=== PATIENT | male | born 1970 | race African-American/Black ===

== ENCOUNTER 2017-03-10 17:47 | Emergency (ER) | payer SELFPAY ==
[~2017-03-10] VITALS: Ht 188 cm; Wt 108.9 kg
[2017-03-10 19:23] LABS: BASOPHIL % 0.4 % (0-2)
[2017-03-10 19:26] LABS: CALCIUM 8.2 mg/dL (8.5-10.1); CARBON DIOXIDE 27.8 mmol/L (21-32); CHLORIDE SERUM 102 mmol/L (98-107); CREATININE SERUM 1.2 mg/dL (0.7-1.3); GFR1 > 60 mL/min; GLUCOSE SERUM 81 mg/dL (74-106); POTASSIUM SERUM 3.7 mmol/L (3.5-5.1); SODIUM SERUM 137 mmol/L (136-145)
[2017-03-10 19:33] LABS: ALKALINE PHOSPHATASE 119 U/L (46-116); ALT/SGPT 12 U/L (16-63); AST/SGOT 23 U/L (15-37); BILIRUBIN TOTAL 0.7 mg/dL (0.20-1.00); TOTAL PROTEIN, SERUM 6.6 g/dL (6.4-8.2)
[2017-03-10 19:34] LABS: ALBUMIN 2.3 g/dL (3.4-5.0)
[2017-03-10 19:39] LABS: PLATELET COUNT 408 x10^3mcL (130-400)
[2017-03-10 20:31] LABS: UA SPECIFIC GRAVITY >=1.030 (1.005-1.035); microscopic required? YES; urine erythrocyte NEGATIVE (NEGATIVE)
[2017-03-10 22:49] VITALS: BP 116/81
== END 2017-03-10 22:45 | disposition home or self-care (01) ==
LOC: ED 17:47
PROVIDERS: Emergency Medicine
DX: R60.0 Localized edema (principal); I50.9 Heart failure, unspecified; M79.605 Pain in left leg; M79.604 Pain in right leg
CPT/HCPCS: 36415; 83880; 85378; Q0092